=== PATIENT | male | born 1990 ===

== ENCOUNTER 2017-07-02 00:31 | Emergency (ER) | payer SELFPAY ==
[2017-07-02 00:35] VITALS: TEMP 97.8
--- NOTE | 2017-07-02 04:42 | ED PDOC ---
HPI: Psych/Substance Abuse Chief Complaint (Provider): Alcohol abuse History Per: Patient History/Exam Limitations: no limitations Additional Complaint(s): 26 yo male with no medical problems presents with EMS after drinking tonight. PT denies complaints <Monica Salazar - Last Filed: 07/02/17 05:57> <Tavon Oviedo - Last Filed: 07/02/17 06:41> Time Seen by Provider: 07/02/17 00:37 Chief Complaint (Nursing): Alcohol Ingestion Past Medical History Reviewed: Historical Data, Nursing Documentation, Vital Signs Vital Signs: Last Vital Signs Temp 97.8 F 07/02/17 00:38 Pulse 62 07/02/17 03:54 Resp 12 07/02/17 03:54 BP 102/74 07/02/17 03:54 Pulse Ox 98 07/02/17 03:54 - Medical History PMH: No Chronic Diseases - Surgical History Surgical History: No Surg Hx - Family History Family History: States: No Known Family Hx - Living Arrangements Living Arrangements: With Family - Social History Current smoker - smoking cessation education provided: No <Monica Salazar - Last Filed: 07/02/17 05:57> Vital Signs: Last Vital Signs Temp 97.8 F 07/02/17 00:38 Pulse 64 07/02/17 05:42 Resp 12 07/02/17 03:54 BP 104/54 L 07/02/17 05:42 Pulse Ox 98 07/02/17 05:58 <Tavon Oviedo - Last Filed: 07/02/17 06:41> - Allergies Allergies/Adverse Reactions: Allergies Allergy/AdvReac Type Severity Reaction Status Date / Time No Known Allergies Allergy Verified 07/02/17 00:38 Review of Systems ROS Statement: Except As Marked, All Systems Reviewed And Found Negative Constitutional: Negative for: Fever, Chills Cardiovascular: Negative for: Chest Pain Respiratory: Negative for: Cough Gastrointestinal: Negative for: Nausea, Vomiting, Abdominal Pain Skin: Negative for: Rash <Monica Salazar - Last Filed: 07/02/17 05:57> Physical Exam - Reviewed Nursing Documentation Reviewed: Yes Vital Signs Reviewed: Yes - Physical Exam Appears: Positive for: Well, Non-toxic, No Acute Distress Head Exam: Positive for: ATRAUMATIC, NORMAL INSPECTION, NORMOCEPHALIC Skin: Positive for: Normal Color, Warm, DRY Eye Exam: Positive for: EOMI, Normal appearance, PERRL ENT: Positive for: Normal ENT Inspection Neck: Positive for: Normal, Painless ROM Cardiovascular/Chest: Positive for: Regular Rate, Rhythm Respiratory: Positive for: CNT, Normal Breath Sounds Back: Positive for: Normal Inspection Extremity: Positive for: Normal ROM Neurologic/Psych: Positive for: Alert, Oriented <Monica Salazar - Last Filed: 07/02/17 05:57> - ECG O2 Sat by Pulse Oximetry: 98 <Monica Salazar - Last Filed: 07/02/17 05:57> Medical Decision Making Medical Decision Makin - Pt agitated in ER and continues to attempt getting out of bed with unsteady gait. 0600 - Pt sleeping, able to wake but drowsy. Endorsed pending sobriety. <Monica Salazar - Last Filed: 07/02/17 05:57> Disposition - Patient ED Disposition Is Patient to be Admitted: Transfer of Care - Disposition Disposition: Transfer of Care Disposition Time: 06:00 <Monica Salazar - Last Filed: 07/02/17 05:57> - Disposition Disposition: Routine/Home (at 0636) <Tavon Oviedo - Last Filed: 07/02/17 06:41> - Clinical Impression Clinical Impression: Alcohol abuse with intoxication - Disposition Condition: STABLE Instructions: Alcohol Abuse and Alcoholism (DC) Forms: [employer] ([place]) Progress Note - Review of Symptoms Events since last encounter: Time: 0636 Patient is sober, alert, awake and oriented, stable for discharge. Scribe Attestation: Documented by Kelly Brooks, acting as a scribe for Tavon Oviedo MD. Provider Scribe Attestation: All medical record entries made by the Scribe were at my direction and personally dictated by me. I have reviewed the chart and agree that the record accurately reflects my personal performance of the history, physical exam, medical decision making, and the department course for this patient. I have also personally directed, reviewed, and agree with the discharge instructions and disposition. <Tavon Oviedo - Last Filed: 07/02/17 06:41>
[2017-07-02 06:48] VITALS: BP 118/77; PULSE 70; RESP 20; O2SAT 96
== END 2017-07-02 07:10 | disposition home or self-care (01) ==
LOC: MERGE 00:31 → H.ER 00:31
DX: F10.129 Alcohol abuse with intoxication, unspecified (principal)
CPT/HCPCS: 82948; 96372; 99285; G0480; J1630; J2060

== ENCOUNTER 2017-12-10 11:53 | Emergency (ER) | payer OTHER ==
[2017-12-10] MEDS ORDERED: Albuterol-Ipratrop 3 mg / 0.5 (3 ml) UD IH STA (12:30)
--- NOTE | 2017-12-10 12:33 | ED PDOC ---
HPI: CCC, URI, Sore Throat Time Seen by Provider: 12/10/17 12:15 History Per: Patient Onset/Duration Of Symptoms: Days (2) Current Symptoms Are (Timing): Still Present Location Of Pain: Throat Associated Symptoms: Sore Throat. denies: Fever, Cough Severity: Mild Additional Complaint(s): Sore throat and wheezing x 2 days. Denies cough or fever. Ran out of inhaler. Past Medical History - Medical History PMH: Asthma - Family History Family History: States: Unknown Family Hx - Immunization History Hx Tetanus Toxoid Vaccination: No Hx Influenza Vaccination: No Hx Pneumococcal Vaccination: No - Home Medications Home Medications: Ambulatory Orders Medication Instructions Recorded Albuterol HFA [Ventolin HFA 90 2 puff IH Q4H #1 puff 12/10/17 mcg/actuation (8 g)] Azithromycin [Zithromax] 250 mg PO DAILY #6 tab 12/10/17 - Allergies Allergies/Adverse Reactions: Allergies Allergy/AdvReac Type Severity Reaction Status Date / Time No Known Allergies Allergy Verified 02/24/17 18:28 Review of Systems ROS Statement: Except As Marked, All Systems Reviewed And Found Negative ENT: Positive for: Throat Pain Respiratory: Positive for: Wheezing Physical Exam - Reviewed Nursing Documentation Reviewed: Yes Vital Signs Reviewed: Yes - Physical Exam Appears: Positive for: Non-toxic, No Acute Distress Head Exam: Positive for: ATRAUMATIC, NORMAL INSPECTION, NORMOCEPHALIC Skin: Positive for: Normal Color, Warm, DRY Eye Exam: Positive for: EOMI, Normal appearance, PERRL ENT: Positive for: Pharyngeal Erythema. Negative for: Tonsillar Exudate Neck: Positive for: Normal, Painless ROM Cardiovascular/Chest: Positive for: Regular Rate, Rhythm Respiratory: Positive for: Wheezing (Mild end expiratory). Negative for: Respiratory Distress Gastrointestinal/Abdominal: Positive for: Normal Exam, Soft Back: Positive for: Normal Inspection Extremity: Positive for: Normal ROM Neurologic/Psych: Positive for: Alert, Oriented Disposition - Clinical Impression Clinical Impression: Pharyngitis, Asthma - Patient ED Disposition Is Patient to be Admitted: No Counseled Patient/Family Regarding: Studies Performed, Diagnosis, Need For Followup, Rx Given - Disposition Referrals: [facility] [place] [Outside] Disposition: Routine/Home Disposition Time: 12:33 Condition: FAIR Prescriptions: Albuterol HFA [Ventolin HFA 90 mcg/actuation (8 g)] 2 puff IH Q4H #1 puff Azithromycin [Zithromax] 250 mg PO DAILY #6 tab Instructions: Asthma in Adults, Sore Throat in Adults
[2017-12-10 12:45] VITALS: RESP 18
[2017-12-10 13:25] VITALS: BP 152/76; PULSE 77; TEMP 98; O2SAT 100
--- NOTE | 2017-12-10 13:35 | RAD ---
Date of service: 12/10/2017 HISTORY: Wheezing asthma COMPARISON: No prior. TECHNIQUE: Chest PA and lateral FINDINGS: LUNGS: No active pulmonary disease. PLEURA: No significant pleural effusion identified. No pneumothorax apparent. CARDIOVASCULAR: No aortic atherosclerotic calcification present. Normal cardiac size. No pulmonary vascular congestion. OSSEOUS STRUCTURES: No significant abnormalities. VISUALIZED UPPER ABDOMEN: Normal. OTHER FINDINGS: None. IMPRESSION: No active disease.
== END 2017-12-10 13:20 | disposition home or self-care (01) ==
LOC: H.ER 11:53
DX: J45.909 Unspecified asthma, uncomplicated (principal); J02.9 Acute pharyngitis, unspecified